=== PATIENT | female | born 2000 | race American Indian/Alaskan Native ===

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

== ENCOUNTER 2023-06-02 15:12 | Outpatient (CLI) | payer OTHER | END 2023-06-02 15:18 | disposition home or self-care (01) | LOC: SONOGRAMA 15:12 | PROVIDERS: ATTEND Urology | DX: N20.0 Calculus of kidney (principal) ==